=== PATIENT | male | born 1980 | race American Indian/Alaskan Native ===

== ENCOUNTER 2016-11-15 12:23 | Emergency (ER) | payer MEDICAID ==
--- NOTE | 2016-11-15 12:29 | EDM.PDOC ---
ED HPI ENT - General Chief Complaint: ENT Problem Stated Complaint: THROAT, EAR PAIN Time Seen by Provider: 11/15/16 12:27 Source of Information: Reports: Patient History Limitations: Reports: No limitations - History of Present Illness INITIAL COMMENTS - FREE TEXT/NARRATIVE: C/O sore throat and Rt ear pain x2 days. Reports feeling fever/chills subjectively. Son was treated for strep last week. Timing/Duration: Reports: Constant Location: Reports: throat Quality: Reports: Ache Improves with: Reports: None Worsens with: Reports: None Associated Symptoms: Reports: no other symptoms - Related Data Allergies/ADRs: Allergies Allergy/AdvReac Type Severity Reaction Status Date / Time No Known Allergies Allergy Verified 11/15/16 12:33 Home Meds: Home Meds ALPRAZolam [Alprazolam] 1 tab PO TID 11/15/16 [History] Omeprazole Magnesium [Prilosec Otc] 1 tab PO BID 11/15/16 [History] Past Medical History - Past Health History Medical/Surgical History: Denies Medical/Surgical History Social & Family History - Family History Family Medical History: Noncontributory - Living Situation & Occupation Living situation: Reports: with family ED ROS ENT - Review of Systems Review Of Systems: ROS reveals no pertinent complaints other than HPI. ED EXAM, ENT - Physical Exam Exam: See Below Exam Limited By: No limitations General Appearance: alert, WD/WN, no apparent distress Eye Exam: bilateral eye: normal inspection Ears: TM dullness, TM erythema (Rt) Nose: normal inspection, normal mucousa, no blood Mouth/Throat: Normal gums, Normal lips, Tonsillar erythema Head: atraumatic, normocephalic Neck: normal inspection, supple, non-tender, full range of motion Respiratory/Chest: no respiratory distress, lungs clear, normal breath sounds, no accessory muscle use, chest non-tender Cardiovascular: regular rate, rhythm GI/Abdominal: normal bowel sounds, soft, non tender, no distention Neurological: alert, oriented, no motor/sensory deficits Psychiatric: normal mood Skin: Warm, Dry, Intact, Normal color, No rash Course - Vital Signs Last Recorded V/S: Last Vital Signs Temp 36.4 C 11/15/16 12:38 Pulse 75 11/15/16 12:38 Resp 18 11/15/16 12:38 BP 123/70 11/15/16 12:38 Pulse Ox 98 11/15/16 12:38 - Orders/Labs/Meds Labs: Influenza A/B: negative Rapid Strep: negative Departure - Departure Time of Disposition: 15:09 Disposition: Home, Self-Care 01 Condition: good Clinical Impression: Otalgia, right ear Pharyngitis Qualifiers: Pharyngitis/tonsillitis etiology: unspecified etiology Qualified Code(s): J02.9 - Acute pharyngitis, unspecified Instructions: Pharyngitis, [id number] Forms: ED Department Discharge Additional Instructions: Frequent saltwater gargles until improved. Use over the counter Tylenol and/or Ibuprofen as needed for pain or fever. Follow directions and precautions on label. Follow up in clinic if not improving in 3 days. Rx: Amoxicillin 500mg.
== END 2016-11-15 15:18 | disposition home or self-care (01) ==
LOC: DL.ED 12:23
DX: J02.9 Acute pharyngitis, unspecified (principal); H92.01 Otalgia, right ear
CPT/HCPCS: 87081; 87430; 87804; 99282